=== PATIENT | male | born 1995 ===

== ENCOUNTER 2023-02-28 09:48 | Day surgery (SDC) | payer BC ==
[2023-02-28 10:37] LABS: #Eosinphils 0.1 thou/uL (0.0-0.7); #Lymphocytes 1.5 thou/uL (1.20-3.40); #Monocytes 0.9 thou/uL (0.11-0.59); #Neutrophils 9.7 thou/uL (1.40-6.50); %Basophils 0.2 % (0.0-1.0); %Eosinophils 1.1 % (0.0-10.0); %Lymphocytes 12.2 % (21.0-51.0); %Monocytes 7.4 % (0.0-10.0); %Neutrophils 79.1 % (42.0-75.0); Hemoglobin 15.5 g/dL (14.0-18.0); Mean Corpuscular HGB CONC 33.1 g/dL (32.0-36.0); Mean Corpuscular Hemoglobin 30.2 pg (27.0-31.0); Mean Corpuscular Volume 91.5 fl (78.0-98.0); Mean Platelet Volume 9.2 fL (7.4-10.4); Platelet Count 189 10x3/uL (130-400); RBC Distribution Width 11.7 % (11.5-14.5); Red Blood Cell (RBC) Count 5.13 mill/uL (4.70-6.10); White Blood Cell (WBC) Count 12.2 10x3/uL (4.8-10.8)
[2023-02-28 11:01] LABS: ALT (SGPT) 37 U/L (8-55); AST (SGOT) 17 U/L (5-34); Albumin 4.8 g/dL (3.5-5.0); Alkaline Phosphatase 82 U/L (40-110); Anion Gap 13 mmol/L (10-20); BUN (Urea Nitrogen) 14 mg/dL (8.9-20.6); Calc. Creatinine Clearance 0 mL/min (70-130); Calcium 9.7 mg/dL (7.8-10.44); Carbon Dioxide 25 mmol/L (22-29); Chloride 101 mmol/L (98-107); Estimated GFR 122; Glucose 109 mg/dL (70-105); Lipase 13 U/L (8-78); Protein, Total 7.8 g/dL (6.0-8.3); Sodium 135 mmol/L (136-145)
[2023-02-28] MEDS ORDERED: Ketorolac Tromethamine 30 MG/ML VIAL ONE (11:39)
[2023-02-28] MEDS ORDERED: Ondansetron PF 4 MG/2 ML Vial ONE ×2 (11:39→17:20)
[2023-02-28 12:16] LABS: Bilirubin Negative (Negative); Blood, Urine Negative (Negative); Clarity Clear (Clear); Glucose, Urine (Dipstick) Normal (Negative); Ketone, Urine 80 mg/dL (Negative); Leukocyte Negative Leu/uL (Negative); Nitrite Negative (Negative); Protein, Urine (Dipstick) 20 mg/dL (Neg-Trace); Specific Gravity, Urine 1.024 (1.002-1.036); Urobilinogen Normal mg/dL (Less than 2)
[2023-02-28] MEDS ORDERED: Piperacillin/Tazobactam 4.5 GM VIAL ONE (12:48)
[2023-02-28] MEDS ORDERED: Iopamidol-370 76% 500 ML MDV (1 ML CHARGE) ONE (14:03)
[2023-02-28] MEDS ORDERED: fentaNYL 50 mcg/mL 1 mL Vial ONE (16:47)
[2023-02-28] MEDS ORDERED: Midazolam HCl 2 mg/2 ml Vial ONE (16:47)
[2023-02-28] MEDS ORDERED: Bupivacaine/Epinephrine 0.25% 30 ML VIAL ONE (17:07)
[2023-02-28] MEDS ORDERED: Promethazine HCl 25 MG/ML VIAL IM PRN (17:09)
[2023-02-28] MEDS ORDERED: Ondansetron HCl/PF 4 MG/2 ML Vial IVP PRN (17:09)
[2023-02-28] MEDS ORDERED: Meperidine HCl/PF 25 MG/ML VIAL SLOW IVP PRN (17:09)
[2023-02-28] MEDS ORDERED: PROPOFOL 200 MG/20 ML VIAL ONE (17:20)
[2023-02-28] MEDS ORDERED: Succinylcholine Chloride 100 MG/5 ML SYRINGE FS ONE (17:20)
[2023-02-28] MEDS ORDERED: ePHEDrine Sulfate 50 MG/10 ML VIAL ONE (17:20)
[2023-02-28] MEDS ORDERED: Dexamethasone 20 MG/5 ML VIAL ONE (17:20)
[2023-02-28] MEDS ORDERED: EPINEPHrine 1 MG/10 ML Abboject SYRINGE ONE (17:20)
[2023-02-28] MEDS ORDERED: Piperacillin/Tazobactam 3.375 GM VIAL ONE (17:34)
[2023-02-28] MEDS ORDERED: Ipratropium/Albuterol 3 ML NEB ONE (18:17)
[2023-02-28] MEDS ORDERED: Magnesium 5 GM/10 ML VIAL ONE ×3 (18:18→18:30)
[2023-02-28] MEDS ORDERED: HYDROcodone/Acetaminophen 5/325 mg Tablet ONE (19:10)
== END 2023-02-28 19:33 | disposition home or self-care (01) ==
LOC: ERS 09:48 → SDC 15:16
PROVIDERS: ATTEND Surgery
PROC: 0DTJ4ZZ Resection of Appendix, Percutaneous Endoscopic Approach (ICD-10-PCS; principal; 2023-02-28)
DX: K35.80 Unspecified acute appendicitis (principal); K40.90 Unilateral inguinal hernia, without obstruction or gangrene, not specified as recurrent; F17.210 Nicotine dependence, cigarettes, uncomplicated; Z79.899 Other long term (current) drug therapy
CPT/HCPCS: 36415; 74177; 80053; 81003; 83690; 85025; 88304; 96365; 96375; J0171; J1100; J1885; J2250; J2405; J2543; J2704; J3010; J3475; J7620; Q9967